=== PATIENT | male | born 1945 | race Two or more races ===

== ENCOUNTER 2018-04-01 11:58 | Emergency (ER) | payer OTHER, MEDICARE ==
[~2018-04-01] VITALS: Ht 177.8 cm; Wt 75.6 kg
[2018-04-01 12:00] VITALS: BP 150/72
== END 2018-04-01 14:08 | disposition home or self-care (01) ==
LOC: ED 13:30
DX: R51 Headache (principal); E78.00 Pure hypercholesterolemia, unspecified; I10 Essential (primary) hypertension; J45.909 Unspecified asthma, uncomplicated
CPT/HCPCS: 70450; 99284

== ENCOUNTER → 2018-08-02 | Outpatient (CLI) | payer OTHER, MEDICARE | END | disposition home or self-care (01) | LOC: CFH 09:36 | PROVIDERS: ATTEND Neurological Surgery | DX: S06.5X0D Traumatic subdural hemorrhage without loss of consciousness, subsequent encounter (principal); X58.XXXD Exposure to other specified factors, subsequent encounter | CPT/HCPCS: 70450 ==